=== PATIENT | female | born 1985 | race Caucasian/White ===

== ENCOUNTER 2021-01-10 09:18 | Emergency (ER) | payer OTHER ==
[~2021-01-10] VITALS: Ht 160 cm; Wt 66.7 kg
[2021-01-10] MEDS ORDERED: CABERGOLINE0.5 MG (09:35)
== END 2021-01-10 13:35 | disposition home or self-care (01) ==
LOC: ER 09:18
DX: N93.8 Other specified abnormal uterine and vaginal bleeding (principal)

== ENCOUNTER 2021-10-07 09:37 | Outpatient (CLI) | payer OTHER ==
[~2021-10-07 09:37] MED LIST: CABERGOLINE0.5 MG
== END 2021-10-07 10:12 | disposition home or self-care (01) ==
LOC: NST 09:37
PROVIDERS: ATTEND Obstetrics & Gynecology
DX: Z34.83 Encounter for supervision of other normal pregnancy, third trimester (principal)

== ENCOUNTER 2021-10-12 12:55 | Outpatient (CLI) | payer OTHER | END 2021-10-12 13:39 | disposition home or self-care (01) | LOC: NST 12:55 | PROVIDERS: ATTEND Obstetrics & Gynecology | DX: Z34.83 Encounter for supervision of other normal pregnancy, third trimester (principal) ==

== ENCOUNTER 2021-11-12 22:22 | Outpatient (CLI) | payer OTHER ==
[~2021-11-12 22:22] MED LIST changes: -ALBUTEROL2.5 MG/3 M; -METFORMIN HCL500 M1; -PRENATAL TABLE1 EAC3 PO
[2021-11-13] MEDS ORDERED: PRENATAL TABLE1 EAC3 PO (01:24)
[2021-11-14] MEDS ORDERED: ALBUTEROL2.5 MG/3 M (09:23)
[2021-11-14] MEDS ORDERED: METFORMIN HCL500 M1 (09:23)
== END 2021-11-13 07:47 | disposition home or self-care (01) ==
LOC: OBS/DEL 22:22 → NST 22:22 → OBS/DEL 11-13 07:47
PROVIDERS: ATTEND Obstetrics & Gynecology
DX: Z34.83 Encounter for supervision of other normal pregnancy, third trimester (principal)

== ENCOUNTER → 2021-11-12 | Outpatient (CLI) | payer OTHER ==
[~2021-11-12] MED LIST changes: +ALBUTEROL2.5 MG/3 M; +METFORMIN HCL500 M1; +PRENATAL TABLE1 EAC3 PO
== END | disposition home or self-care (01) ==
LOC: NST 22:51
PROVIDERS: ATTEND Obstetrics & Gynecology
DX: Z34.83 Encounter for supervision of other normal pregnancy, third trimester (principal)

== ENCOUNTER 2021-11-13 03:32 | Inpatient (IN) | payer OTHER ==
[~2021-11-13] VITALS: Ht 160 cm; Wt 77.6 kg
[~2021-11-13 03:32] MED LIST changes: +PRENATAL TABLE1 EAC3 PO
[2021-11-14] MEDS ORDERED: ALBUTEROL2.5 MG/3 M (09:23)
[2021-11-14] MEDS ORDERED: METFORMIN HCL500 M1 (09:23)
== END 2021-11-15 14:04 | disposition home or self-care (01) | DRG 807 ==
LOC: SURG-SUITE 03:32 → LDR 03:32 → SURG-SUITE 07:44 → OB/GYN 11-15 14:01 → SURG-SUITE 11-15 14:04
PROVIDERS: ADMIT Obstetrics & Gynecology; ATTEND Obstetrics & Gynecology
PROC: 10E0XZZ Delivery of Products of Conception, External Approach (ICD-10-PCS; principal; 2021-11-13)
PROC: 0KQM0ZZ Repair Perineum Muscle, Open Approach (ICD-10-PCS; 2021-11-13)
PROC: 4A1HXCZ Monitoring of Products of Conception, Cardiac Rate, External Approach (ICD-10-PCS; 2021-11-13)
DX: O70.1 Second degree perineal laceration during delivery (principal); Z37.0 Single live birth; Z3A.37 37 weeks gestation of pregnancy; Z20.822 Contact with and (suspected) exposure to COVID-19

== ENCOUNTER 2023-08-15 11:10 | Outpatient (CLI) | payer OTHER ==
[~2023-08-15 11:10] MED LIST changes: +ALBUTEROL2.5 MG/3 M; +METFORMIN HCL500 M1
== END 2023-08-15 11:20 | disposition home or self-care (01) ==
LOC: NST 11:10
PROVIDERS: ATTEND Obstetrics & Gynecology
DX: Z34.83 Encounter for supervision of other normal pregnancy, third trimester (principal)

== ENCOUNTER 2023-08-28 11:48 | Outpatient (CLI) | payer OTHER | END 2023-08-28 12:36 | disposition home or self-care (01) | LOC: NST 11:48 | PROVIDERS: ATTEND Obstetrics & Gynecology Maternal & Fetal Medicine | DX: Z34.83 Encounter for supervision of other normal pregnancy, third trimester (principal) ==

== ENCOUNTER 2023-09-21 12:45 | Inpatient (IN) | payer OTHER ==
[~2023-09-21] VITALS: Ht 162.6 cm; Wt 81.2 kg
[2023-10-08] MEDS ORDERED: RINGERS SOLUTION,LACTATED 1,000 ML IV SCH (05:00)
[2023-10-08 05:40] LABS: HEMATOCRIT 34.2 % (36.0-45.00); HEMOGLOBIN 12.1 g/dL (12.0-15.00); MEAN CELL VOLUME 87.4 fL (80.00-100.00); MEAN CORPUSCULAR HEMOGLOBIN 30.8 pg (27.00-32.0); MEAN CORPUSCULAR HGB CONC 35.3 g/dl (32.0-36.0); PLATELET COUNT 257 K/uL (150-450); RED BLOOD COUNT 3.92 M/uL (4.00-6.00); RED CELL DISTRIBUTION WIDTH 13.8 % (11.5-14.5)
[2023-10-08 05:54] LABS: INR < 0.93; PROTHROMBIN TIME 9.5 SECONDS (9.0-11.5)
[2023-10-08 06:04] LABS: ALBUMIN 2.8 gm/dL (3.4-5.0); BILIRUBIN TOTAL 0.51 mg/dL (0.3-1.2); CALCIUM 8.9 mg/dL (8.5-10.1); CREATININE SERUM 0.55 mg/dL (0.55-1.02); GFR 125.06; GLOBULINA 3.5 G/DL (2.4-3.5); POTASSIUM 4.1 mEq/L (3.5-5.1); TOTAL PROTEIN 6.3 gm/dL (6.4-8.2)
[2023-10-08] MEDS ORDERED: OXYTOCIN 20 UNITS/500ML RL PIGGYBAG IV ONE (07:58)
[2023-10-08] MEDS ORDERED: OXYTOCIN 1,000 ML IV ONE (08:00)
[2023-10-08] MEDS ORDERED: MORPHINE SULFATE 4 MG/ML VIAL IV ONE (08:15)
[2023-10-08] MEDS ORDERED: MORPHINE SULFATE 4 MG/ML CARTRIDGE IV ONE (13:00)
[2023-10-08] MEDS ORDERED: CHLORHEXIDINE GLUCONATE 120 ML BOTTLE TOP ONE ×2 (14:21→18:30)
[2023-10-08] MEDS ORDERED: ERYTHROMYCIN BASE 1 GM TUBE OP ONE ×2 (14:21→18:30)
[2023-10-08] MEDS ORDERED: OXYTOCIN 20 UNITS/1000ML RL PIGGYBAG IV ONE (14:21)
[2023-10-08] MEDS ORDERED: LIDOCAINE HCL 1% 200MG/20ML VIAL IJ ONE ×2 (14:21→18:30)
[2023-10-08] MEDS ORDERED: OXYTOCIN 1,000 ML IV SCH (17:00)
[2023-10-08] MEDS ORDERED: OxyCODONE HCL/APAP UD (PERCOCET) PO PRN (17:00)
[2023-10-08] MEDS ORDERED: IBUprofen 400 MG TABLET PO PRN (17:00)
[2023-10-09] MEDS ORDERED: FF) RHO(D) IMMUNE GLOBULIN (POM) IM ONE (08:30)
[2023-10-09] MEDS ORDERED: BUDESONIDE-FO10.2 G1 (15:52)
[2023-10-09] MEDS ORDERED: MONTELUKAST SOD10 MG (15:58)
[2023-10-09] MEDS ORDERED: FLONASE16 GM (15:58)
== END 2023-10-10 14:03 | disposition home or self-care (01) | DRG 807 ==
LOC: OB/GYN 10-08 04:51 → LDR 10-08 04:51 → OB/GYN 10-08 09:27 → LDR 10-13 12:45
PROVIDERS: Obstetrics & Gynecology; ADMIT Obstetrics & Gynecology Maternal & Fetal Medicine; ATTEND Obstetrics & Gynecology Maternal & Fetal Medicine
PROC: 10E0XZZ Delivery of Products of Conception, External Approach (ICD-10-PCS; principal; 2023-10-08)
PROC: 0HQ9XZZ Repair Perineum Skin, External Approach (ICD-10-PCS; 2023-10-08)
PROC: 4A1HXCZ Monitoring of Products of Conception, Cardiac Rate, External Approach (ICD-10-PCS; 2023-10-08)
DX: O70.0 First degree perineal laceration during delivery (principal); Z37.0 Single live birth; Z3A.39 39 weeks gestation of pregnancy; Z20.822 Contact with and (suspected) exposure to COVID-19

== ENCOUNTER 2023-10-02 11:27 | Outpatient (CLI) | payer OTHER | END 2023-10-02 13:42 | disposition home or self-care (01) | LOC: NST 11:27 | PROVIDERS: ATTEND Obstetrics & Gynecology | DX: Z34.83 Encounter for supervision of other normal pregnancy, third trimester (principal) ==

== ENCOUNTER 2023-10-03 11:56 | Outpatient (CLI) | payer OTHER | END 2023-10-03 12:36 | disposition home or self-care (01) | LOC: NST 11:56 | PROVIDERS: ATTEND Obstetrics & Gynecology | DX: Z34.83 Encounter for supervision of other normal pregnancy, third trimester (principal) ==